=== PATIENT | female | born 1990 | race Caucasian/White ===

== ENCOUNTER 2017-07-12 10:01 | Emergency (ER) | payer SELFPAY ==
[~2017-07-12] VITALS: Ht 157.5 cm; Wt 103.9 kg
[2017-07-12 10:27] VITALS: Ht 157.5 cm; Wt 103.9 kg
[2017-07-12 11:37] LABS: microscopic required? YES; urine erythrocyte 2+ (NEGATIVE)
[2017-07-12 11:43] LABS: BASOPHIL % 0.1 % (0-2); PLATELET COUNT 354 x10^3mcL (130-400); RED CELL DISTRIBUTION WIDTH 12.4 % (11.5-14.5)
[2017-07-12 11:46] LABS: CALCIUM 9.2 mg/dL (8.5-10.1); CARBON DIOXIDE 26.3 mmol/L (21-32); CHLORIDE SERUM 99 mmol/L (98-107); CREATININE SERUM 0.7 mg/dL (0.6-1.0); GFR1 > 60 mL/min; GLUCOSE SERUM 97 mg/dL (74-106); POTASSIUM SERUM 3.5 mmol/L (3.5-5.1); SODIUM SERUM 138 mmol/L (136-145)
[2017-07-12 13:19] VITALS: BP 122/71
== END 2017-07-12 13:19 | disposition home or self-care (01) ==
LOC: ED 10:01
PROVIDERS: Emergency Medicine
DX: M54.5 Low back pain (principal); D72.829 Elevated white blood cell count, unspecified
CPT/HCPCS: J0696; J1885; J7030